=== PATIENT | female | born 1990 | race Caucasian/White ===

== ENCOUNTER 2024-12-22 19:09 | Emergency (ER) | payer SELFPAY ==
[2024-12-22] MEDS: Ketorolac 15 MG/ML SDV IVPUSH ONE (19:58)
[2024-12-22] MEDS: Sodium Chloride 0.9% 10 ML Syringe FLUSH PRN (20:01)
[2024-12-22 20:14] LABS: BASOPHILS ABSOLUTE AUTO 0.01 K/uL (0.00-0.20); BASOPHILS PERCENT AUTO 0.1 % (0.0-2.0); EOSINOPHILS PERCENT AUTO 2.3 % (0.0-5.0); HEMATOCRIT 40.4 % (34.0-46.0); HEMOGLOBIN 13.4 g/dL (11.7-15.5); IMMATURE GRAN ABSOLUTE AUTO 0.02 10^3/uL (0.00-0.04); IMMATURE GRAN PERCENT AUTO 0.2 % (0.0-0.4); LYMPHOCYTES ABSOLUTE AUTO 3.24 K/uL (0.50-3.50); LYMPHOCYTES PERCENT AUTO 37.2 % (10.0-50.0); MEAN CORPUSCULAR HEMOGLOBIN 29.4 pg (28.2-33.3); MEAN CORPUSCULAR HGB CONC 33.2 g/dL (31.7-36.0); MEAN CORPUSCULAR VOLUME 88.6 fL (84.0-98.0); MONOCYTES ABSOLUTE AUTO 0.67 K/uL (0.00-1.00); MONOCYTES PERCENT AUTO 7.7 % (2.0-14.0); NEUTROPHILS ABSOLUTE AUTO 4.57 K/uL (1.40-7.00); NEUTROPHILS PERCENT AUTO 52.5 % (45.0-80.0); PLATELET COUNT,PLT 285 K/uL (150-350); RED BLOOD CELL COUNT 4.56 M/uL (3.77-5.09); RED CELL DISTRIBUTION WIDTH 11.8 % (11.2-14.1); WHITE BLOOD CELL COUNT,WBC 8.7 K/uL (4.0-10.2)
[2024-12-22 20:29] LABS: PROTHROMBIN TIME 9.7 SEC (9.0-11.1)
[2024-12-22 20:33] LABS: ALANINE AMINOTRANSFERASE,ALT 23 U/L (12-78); ALBUMIN 3.8 g/dL (3.4-5.0); ALKALINE PHOSPHATASE 63 IU/L (46-116); ASPARTATE AMNIOTRANSFERASE,AST 15 U/L (15-37); BILIRUBIN TOTAL 0.4 mg/dL (0.2-1.0); BLOOD UREA NITROGEN,BUN 18 mg/dL (7-18); CALCIUM 9.3 mg/dL (8.5-10.1); CHLORIDE,CL 106 mmol/L (98-107); CREATININE 1.08 mg/dL (0.51-1.17); GLUCOSE RANDOM 176 mg/dL (70-99); POTASSIUM,K 3.6 mmol/L (3.5-5.1); PROTEIN TOTAL,TP 7.4 g/dL (6.4-8.2); SODIUM,NA 142 mmol/L (136-145)
[2024-12-22 20:40] LABS: ESTIMATED GFR 68 mL/min (>=60)
[2024-12-22] MEDS ORDERED: Naloxone 0.4 MG/ML SDV IVPUSH PRN (21:36)
[2024-12-22] MEDS: HYDROmorphone 0.5 MG/0.5 ML Syringe IVPUSH ONE ×2 (21:50→22:30)
[2024-12-22] MEDS: Diltiazem 25 MG/5 ML SDV IVPUSH ONE (22:30)
== END 2024-12-22 22:45 ==
LOC: LL.ED 19:09
DX: S82.141A Displaced bicondylar fracture of right tibia, initial encounter for closed fracture (principal); Z91.040 Latex allergy status; V18.0XXA Pedal cycle driver injured in noncollision transport accident in nontraffic accident, initial encounter
CPT/HCPCS: 36415; 73560-RT; 80053; 85025; 85610; 96374; 96375; 96376; 99284-25; J1885